=== PATIENT | male | born 1995 | race American Indian/Alaskan Native ===

== ENCOUNTER 2017-06-26 22:25 | Emergency (ER) | payer OTHER ==
[2017-06-27] MEDS ORDERED: TORADOL IM ONE (03:43)
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
[2017-06-27 06:49] VITALS: BP 120/67
== END 2017-06-27 06:49 | disposition home or self-care (01) ==
LOC: ED 22:25
DX: S09.8XXA Other specified injuries of head, initial encounter (principal); M54.5 Low back pain; G44.311 Acute post-traumatic headache, intractable; V89.2XXA Person injured in unspecified motor-vehicle accident, traffic, initial encounter; Y93.89 Activity, other specified; Y92.89 Other specified places as the place of occurrence of the external cause; Y99.8 Other external cause status
CPT/HCPCS: 70450; 96372; 99283; J1885